=== PATIENT | female | born 1955 | race Caucasian/White ===

== ENCOUNTER 2016-08-21 08:06 | Emergency (ER) | payer OTHER ==
[~2016-08-21] VITALS: Ht 152.4 cm; Wt 65.0 kg
[~2016-08-21 08:06] MED LIST: BUPR150T3 PO; DARV PO; ESTR.3 PO; MELO15TA2 PO
[2016-08-21 08:08] VITALS: BP 156/86; PULSE 79; RESP 14; TEMP 98; O2SAT 98
[2016-08-21] MEDS ORDERED: LEVO.05 PO (09:47)
[2016-08-21] MEDS ORDERED: ESTR0.5T PO (09:47)
[2016-08-21] MEDS ORDERED: VITA10002 PO (09:47)
[2016-08-21] MEDS ORDERED: CHOL50008 PO (09:47)
== END 2016-08-21 08:50 | disposition left against medical advice (07) ==
LOC: NED 08:06
DX: Z53.21 Procedure and treatment not carried out due to patient leaving prior to being seen by health care provider (principal)
CPT/HCPCS: 99281

== ENCOUNTER 2016-08-21 09:20 | Inpatient (IN) | payer OTHER ==
[~2016-08-21] VITALS: Ht 146.1 cm; Wt 69.9 kg
[2016-08-21 09:22] VITALS: BP 141/82; PULSE 80; RESP 18; TEMP 98; O2SAT 96
--- NOTE | 2016-08-21 09:43 | PD ---
HPI Chief Complaint: Flank/Kidney Pain Time Seen by Provider: 09:27 Travel History International Travel<30 days: No Contact w/Intl Traveler<30days: No Traveled to known affect area: No History of Present Illness HPI 61-year-old female complains of left flank pain and left low quadrant abdominal pain. Patient states that the pain started 11 days ago. Patient states the pain is cramping pain localized to left leg and left low quadrant of the abdomen. Patient denies any pain radiation. Patient denies any nausea vomiting diarrhea. Patient denies any dysuria or frequency. Patient denies any vaginal discharge or bleeding. Patient denies any fever chills. Patient was seen by physician 6 days ago. Patient had CBC, CMP, UA and kidney ultrasound done that time which were normal. Patient was seen by personal physician 5 days ago and was given prescription for prednisone, methocarbamol and diclofenac. Patient has been taking the medication without relief of the pain. Patient status post cholecystectomy, appendectomy, hysterectomy. On a scale of 1-10 the pain is a 7. PFSH Past Medical History Diminished Hearing: Yes ?: Not Menopausal: Yes Past Surgical History Appendectomy: Yes Cholecystectomy: Yes Ear Surgery: Yes Hysterectomy: Yes Social History Alcohol Use: No Tobacco Use: No Substance Use: No Allergies-Medications (Allergen,Severity, Reaction): Coded Allergies: Codeine (Verified Allergy, Severe, HIVES,NAUSEA AND VOMITTING, 08/21/16) Demerol (Verified Allergy, Severe, HIVES,NAUSEA AND VOMITTING, 08/21/16) Tramadol (Verified Allergy, Intermediate, GI UPSET, 08/21/16) Reported Meds & Prescriptions Reported Meds & Active Scripts Active Reported Vitamin D3 (Cholecalciferol) 5,000 Unit Tab 5,000 Units PO DAILY Vitamin B-12 (Cyanocobalamin) 1,000 Mcg Tab 1,000 Mcg PO DAILY Estradiol 0.5 Mg Tab 0.5 Mg PO DAILY Synthroid (Levothyroxine Sodium) 50 Mcg Tab 50 Mcg PO DAILY Review of Systems General / Constitutional: No: Fever Eyes: No: Visual changes HENT: No: Headaches Cardiovascular: No: Chest Pain or Discomfort Respiratory: No: Shortness of Breath Gastrointestinal: Positive: Abdominal Pain Genitourinary: No: Dysuria Musculoskeletal: No: Pain Skin: No Rash Neurologic: No: Weakness Psychiatric: No: Depression Endocrine: No: Polydipsia Hematologic/Lymphatic: No: Easy Bruising Physical Exam Narrative GENERAL: Well-nourished, well-developed patient. SKIN: Warm and dry. HEAD: Normocephalic. EYES: No scleral icterus. No injection or drainage. NECK: Supple, trachea midline. No JVD or lymphadenopathy. CARDIOVASCULAR: Regular rate and rhythm without murmurs, gallops, or rubs. RESPIRATORY: Breath sounds equal bilaterally. No accessory muscle use. GASTROINTESTINAL: Abdomen soft, nondistended. Patient has mild tenderness on palpation epigastric, left low quadrant of the abdomen. No rebound tenderness. No mass. MUSCULOSKELETAL: No cyanosis, or edema. BACK: Nontender without obvious deformity. No CVA tenderness. Neurologic exam normal. Data Data Last Documented VS Vital Signs Date Time Temp Pulse Resp B/P Pulse Ox O2 Delivery O2 Flow Rate FiO2 08/21/16 09:59 16 98 Room Air 08/21/16 09:22 98.0 80 141/82 Orders Complete Blood Count With Diff (08/21/16 09:35) Comprehensive Metabolic Panel (08/21/16 09:35) Urinalysis - C+S If Indicated (08/21/16 09:35) Ct Abd/Pel W Iv Contrast(Rout) (08/21/16 09:35) Iv Access Insert/Monitor (08/21/16 09:35) Ecg Monitoring (08/21/16 09:35) Oximetry (08/21/16 09:35) Sodium Chloride 0.9% Flush (Ns Flush) (08/21/16 09:45) Iohexol 350 Inj (Omnipaque 350 Inj) (08/21/16 10:55) Labs Laboratory Tests Test 08/21/16 08/21/16 09:50 09:55 Urine Collection Type CLEAN CATCH Urine Color STRAW Urine Turbidity CLEAR Urine pH 5.5 Urine Specific [place] 1.007 Urine Protein NEG mg/dL Urine Glucose (UA) NEG mg/dL Urine Ketones NEG mg/dL Urine Occult Blood TRACE Urine Nitrite NEG Urine Bilirubin NEG Urine Leukocyte Esterase NEG Urine Squamous Epithelial 0-5 /hpf Cells Microscopic Urinalysis Comment CULT NOT INDICATED White Blood Count 6.5 TH/MM3 Red Blood Count 4.35 MIL/MM3 Hemoglobin 13.3 GM/DL Hematocrit 39.4 % Mean Corpuscular Volume 90.6 FL Mean Corpuscular Hemoglobin 30.5 PG Mean Corpuscular Hemoglobin 33.6 % Concent Red Cell Distribution Width 11.6 % Platelet Count 314 TH/MM3 Mean Platelet Volume 8.5 FL Neutrophils (%) (Auto) 63.2 % Lymphocytes (%) (Auto) 26.2 % Monocytes (%) (Auto) 6.7 % Eosinophils (%) (Auto) 2.3 % Basophils (%) (Auto) 1.6 % Neutrophils # (Auto) 4.2 TH/MM3 Lymphocytes # (Auto) 1.7 TH/MM3 Monocytes # (Auto) 0.4 TH/MM3 Eosinophils # (Auto) 0.1 TH/MM3 Basophils # (Auto) 0.1 TH/MM3 CBC Comment DIFF FINAL Differential Comment Sodium Level 142 MEQ/L Potassium Level 4.2 MEQ/L Chloride Level 104 MEQ/L Carbon Dioxide Level 30.3 MEQ/L Anion Gap 8 MEQ/L Blood Urea Nitrogen 16 MG/DL Creatinine 0.94 MG/DL Estimat Glomerular Filtration 61 ML/MIN Rate Random Glucose 94 MG/DL Calcium Level 8.8 MG/DL Total Bilirubin 0.4 MG/DL Aspartate Amino Transf 31 U/L (AST/SGOT) Alanine Aminotransferase 34 U/L (ALT/SGPT) Alkaline Phosphatase 62 U/L Total Protein 7.6 GM/DL Albumin 3.9 GM/DL [facility] Medical Decision Making Medical Screen Exam Complete: Yes Emergency Medical Condition: Yes Interpretation(s) 10:58 AM. CBC within normal limit. CMP within normal limit. UA is negative. 11:[address] scan abdomen pelvis shows colitis. Differential Diagnosis Differential diagnosis including musculoskeletal, colitis, UTI, pyelonephritis, nephrolithiasis, adhesion pain. Narrative Course 61-year-old female with persistent left flank pain and left low quadrant abdominal pain. Normal saline solution 1 25 cc an hour. Levaquin 750 mg IV. Flagyl 500 mg IV. Morphine 2 mg IV. Zofran 4 g IV. Diagnosis Primary Impression: Colitis Devyn Mendoza MD Aug 21, 2016 09:43
[2016-08-21] MEDS ORDERED: SODIUM CHLORIDE 0.9% FLUSH 5 ML FLUSH IVF PRN (09:45)
[2016-08-21] MEDS ORDERED: ESTR0.5T PO (09:47)
[2016-08-21] MEDS ORDERED: VITA10002 PO (09:47)
[2016-08-21] MEDS ORDERED: CHOL50008 PO (09:47)
[2016-08-21] MEDS ORDERED: LEVO.05 PO (09:47)
[2016-08-21 09:59] VITALS: RESP 16; O2SAT 98
[2016-08-21 10:16] LABS: AUTOMATED NEUTROPHIL # 4.2 TH/MM3 (1.8-7.7); BASOPHIL # 0.1 TH/MM3 (0-0.2); BASOPHIL % 1.6 % (0.0-2.0); EOSINOPHIL # 0.1 TH/MM3 (0-0.4); EOSINOPHIL % 2.3 % (0.0-4.0); HEMATOCRIT 39.4 % (35.0-46.0); HEMO FLAGS DIFF FINAL; LYMPH % 26.2 % (9.0-44.0); LYMPHOCYTE # 1.7 TH/MM3 (1.0-4.8); MEAN CELL VOLUME 90.6 FL (80.0-100.0); MEAN CORPUSCULAR HEMOGLOBIN 30.5 PG (27.0-34.0); MEAN CORPUSCULAR HGB CONC 33.6 % (32.0-36.0); MONO % 6.7 % (0.0-8.0); NEUT % 63.2 % (16.0-70.0); PLATELET COUNT 314 TH/MM3 (150-450); RED BLOOD COUNT 4.35 MIL/MM3 (4.00-5.30); RED CELL DISTRIBUTION WIDTH 11.6 % (11.6-17.2); WHITE BLOOD COUNT 6.5 TH/MM3 (4.0-11.0)
[2016-08-21 10:17] LABS: BLOOD, URINE TRACE (NEG); GLUCOSE,URINE NEG (NEG); KETONE, URINE NEG (NEG); NITRITE,URINE NEG (NEG); PH, URINE 5.5 (5.0-8.5)
[2016-08-21 10:20] LABS: METHOD OF COLLECTION CLEAN CATCH; URINE COLOR STRAW (YELLW/STRAW)
[2016-08-21 10:21] LABS: COMMENT (UR) CULT NOT INDICATED; CULTURE IF INDICATED CULT NOT INDICATED; SQUAMOUS EPITHELIAL CELL URINE 0-5 /hpf (0-5)
[2016-08-21 10:24] LABS: CHLORIDE 104 MEQ/L (98-107); SODIUM (NA) 142 MEQ/L (136-145)
[2016-08-21 10:26] LABS: POTASSIUM 4.2 MEQ/L (3.5-5.1)
[2016-08-21 10:28] LABS: ANION GAP 8 MEQ/L (5-15); BICARBONATE 30.3 MEQ/L (21.0-32.0); BLOOD UREA NITROGEN 16 MG/DL (7-18)
[2016-08-21 10:31] LABS: ALT (GPT) 34 U/L (10-53); AST (GOT) 31 U/L (15-37); GLOMERULAR FILTRATION RATE 61 ML/MIN (>89)
[2016-08-21 10:32] LABS: TOTAL BILIRUBIN ADULT 0.4 MG/DL (0.2-1.0)
[2016-08-21 10:34] LABS: ALKALINE PHOSPHATASE 62 U/L (45-117)
[2016-08-21] MEDS ORDERED: IOHEXOL 350 MG/ML 10 ML VIAL (for RAD DIAG) IV ONE (10:55)
--- NOTE | 2016-08-21 11:18 | RADHPO ---
EXAM DATE/TIME: 08/21/2016 10:44 [facility] COMPARISON: No previous studies available for comparison. INDICATIONS : Left lower quadrant pain for almost two weeks. IV CONTRAST: 95 cc Omnipaque 350 (iohexol) IV ORAL CONTRAST: No oral contrast ingested. RADIATION DOSE: 9.65 CTDIvol (mGy) MEDICAL HISTORY : None SURGICAL HISTORY : Appendectomy. Cholecystectomy.Hysterectomy. ENCOUNTER: Initial ACUITY: 2 weeks PAIN SCALE: 10/10 LOCATION: Left lower quadrant TECHNIQUE: Volumetric scanning of the abdomen and pelvis was performed. Using automated exposure control and ad justment of the mA and/or kV according to patient size, radiation dose was kept as low as reasonably achievable to obtain optimal diagnostic quality images. FINDINGS: LOWER LUNGS: The visualized lower lungs are clear. LIVER: Decreased attenuation without lesion. There is no dilation of the biliary tree. No calcified gallst ones. SPLEEN: Normal size without lesion. PANCREAS: Within normal limits. KIDNEYS: Normal in size and shape. There is no mass, stone or hydronephrosis. ADRENAL GLANDS: Within normal limits. VASCULAR: There is no aortic aneurysm. BOWEL/MESENTERY: Wall thickening versus nondistention of the descending and sigmoid colon. A few scattered diverticula within the sigmoid colon. No diverticulitis. Multiple small mesenteric lymph nodes.. There is no fr ee intraperitoneal air or fluid. ABDOMINAL WALL: Within normal limits. RETROPERITONEUM: There is no lymphadenopathy. BLADDER: No wall thickening or mass. REPRODUCTIVE: Within normal limits. INGUINAL: There is no lymphadenopathy or hernia. MUSCULOSKELETAL: Within normal limits for patient age. CONCLUSION: 1. Wall thickening versus nondistention of the descending and sigmoid colon which can be seen with co litis. No inflammatory changes, perforation or abscess. 2. Mild hepatic steatosis. Kartik Barone MD on August 21, 2016 at 11:13 Board Certified Radiologist. This report was verified electronically.
[2016-08-21 11:23] VITALS: BP 121/73; PULSE 68; RESP 18; O2SAT 97
[2016-08-21] MEDS ORDERED: MORPHINE SULFATE 4 MG/ML INJ IV PUSH ONE ×2 (11:30→14:45)
[2016-08-21] MEDS ORDERED: metroNIDAZOLE 500 MG INJ 100 ML IV ONE (11:30)
[2016-08-21] MEDS ORDERED: PANTOPRAZOLE SODIUM 40 MG VIAL IV PUSH ONE (11:30)
[2016-08-21] MEDS ORDERED: LEVOFLOXACIN 750 MG PREMIX INJ 150 ML IV ONE (11:30)
[2016-08-21] MEDS ORDERED: ONDANSETRON HCL 4 MG/2 ML VIAL IV PUSH ONE (11:30)
[2016-08-21] MEDS: SODIUM CHLOR 0.9% 1000 ML INJ 1,000 ML IV SCH ×2 (11:46→21:25)
[2016-08-21] MEDS ORDERED: SODIUM CHLORIDE 0.9% FLUSH 5 ML FLUSH FLUSH PRN (13:15)
[2016-08-21] MEDS ORDERED: ACETAMINOPHEN 325 MG TAB PO PRN (13:15)
[2016-08-21] MEDS ORDERED: ONDANSETRON HCL 4 MG/2 ML VIAL IVP PRN (13:15)
[2016-08-21] MEDS ORDERED: NALOXONE HCL 0.4 MG/ML AMP IV PRN (13:15)
[2016-08-21 13:30] VITALS: BP 116/76; PULSE 59; RESP 20; TEMP 96.7; O2SAT 98
[2016-08-21 16:00] VITALS: BP 102/69; PULSE 61; RESP 20; TEMP 96.9; O2SAT 99
[2016-08-21] MEDS ORDERED: MORPHINE SULFATE 4 MG/ML INJ IV PUSH PRN ×2 (19:00)
[2016-08-21] MEDS ORDERED: HYDROmorphone HCL PF 1 MG/ML VIAL IV PUSH PRN (19:15)
--- NOTE | 2016-08-21 19:33 | MH ---
cc: DOUG DE LA CRUZ DATE OF ADMISSION 08/21/2016 ADMISSION DIAGNOSIS Left lower quadrant, left flank pain. HISTORY OF PRESENT ILLNESS Ms. Tinajero is a 61-year-old female who states approximately a week ago she woke up with left-sided pain. She said it radiated, it moved forward into her groin and a little bit into her back. She states that morning she had made breakfast and jumped on her grandson's bed to play with him and to get him up. She does not know if the pain started before or after that. She had bryson for dinner the night before. She did not had any fevers, chills, nausea or vomiting, just a constant pain that was unrelieved. She tried [id number] medications with ibuprofen. Finally she went to [facility] where she was seen there and evaluated. Urinalysis that was done was negative. They did do a renal ultrasound. This was also read as negative. This was on August 15. On August 16 she was seen by her primary care physician who again reevaluated her and placed her on Robaxin and prednisone 20 mg once daily. The Robaxin 500 three times a day. She said that when she went to the pharmacy the Prednisone was not there so she actually just took the Robaxin. She also was doing stretching exercises. According to her she was doing well prior to this pain. She describes the pain as a constant pain. She has not been able to sleep at all at night. She feels as if though it is moving through from her anterior lower abdomen straight to her back. It is made worse with bending forward or sitting. She feels better if she is lying flat in bed. She has had no nausea or vomiting. No diarrhea. No change in her bowel movement. She is urinating well. She has noticed no rashes. Over the weekend what she did is, since she was not feeling any better she was eating less food. She did notice that the pain was a little bit improved when she ate, when she had light meals over the weekend. However, this morning when she woke up the pain was intense which prompted her to come to the emergency room. Nothing seems to be improving the pain. She describes the pain as being present 07/01. She has had a small amount of relief with morphine she has received. PAST MEDICAL HISTORY 1. She does have a past medical history of hypothyroidism. 2. Lumbar disk disease. She has had eight injections by pain management. 3. She has had a prior history of kidney stones as well. PAST SURGICAL HISTORY Her surgical history includes: 1. Bilateral surgery. 2. Appendectomy. 3. Cholecystectomy. 4. She has had a supracervical hysterectomy. 5. Tonsillectomy. 6. Her last colonoscopy was in 2007 and this was normal. ALLERGIES CODEINE, DEMEROL AND TRAMADOL, HOWEVER, SHE HAS BEEN ABLE TO TAKE THE MORPHINE. SHE STATES THAT MOST OF HER ALLERGIES ARE SECONDARY TO GI UPSET OR SHE JUST DOES NOT LIKE THE WAY THE MEDICINES MAKE HER FEEL. MEDICATIONS Include: 1. Biotin. 2. Estradiol 0.5. 3. Levothyroxine 50 mcg daily. 4. Red yeast rice. 5. B12 1000 micrograms. 6. Vitamin D3. SOCIAL HISTORY She is . 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 Habits, she drinks an occasional wine. She used to smoke a pack a week approximately, she no longer smokes. FAMILY HISTORY Noncontributory. REVIEW OF SYSTEMS She denies any fevers, chills. No weight gain or loss. No chest pain or shortness of breath or palpitations. No heartburn or indigestion. She does state she is urinating well. She denies any numbness or tingling or swelling. No pain in her legs. PHYSICAL EXAMINATION VITAL SIGNS: On physical exam temperature is 96.9, pulse is 61, respirations 20, blood pressure is 102/69, pulse ox on room air is 99%. GENERAL: This is a very pleasant female lying in the hospital bed. She speaks very comfortably and moves very well in the bed. HEENT: She is normocephalic and traumatic. EOM is intact. She is wearing her glasses. NECK: Her neck is supple. LUNGS: Her lungs were clear to auscultation bilaterally. No rhonchi, rales or wheezes. CARDIOVASCULAR: Her heart is regular. It is not tachycardiac. I hear no murmurs. ABDOMEN: The abdomen has bowel sounds. They are a little bit diminished. She is tender in the left lower quadrant to palpation. She does have some tenderness in the left lower paravertebral area above the sciatic notch. MUSCULOSKELETAL: She has negative straight leg raising. I am not able to elicit the pain with movement. SKIN: She has no rashes evident on her skin. LABORATORY DATA Lab work that was done showed a white count of 6.5, hemoglobin of 13.3, hematocrit of 39.4, a platelet count of 314. Chemistry shows sodium of 142, potassium of 4.2, BUN 16, creatinine 0.94. Her urine was negative except for trace occult blood. IMAGING CT scan that was done showed wall thickening versus non distension of the descending and sigmoid colon which can be seen with a colitis. No inflammatory changes, perforation or abscess. Mild hepatic steatosis. ASSESSMENT/PLAN A 51-year-old female presenting with over a week history of left lower quadrant pain with negative workup so far. At this time she has been admitted and started on antibiotics and IV hydration. We will keep her on clear liquids. My initial impression when I spoke to the patient was that this was musculoskeletal but on exam she does have left lower quadrant tenderness to palpation. So we will continue with the current course of treatment. I have asked GI to see her. I placed a consult. We will continue the rest of the medications for her hypothyroidism. Further recommendations as the case develops. MD DENNIS Clark/LESLY /6:52 PM /7:07 PM
[2016-08-21 20:00] VITALS: BP 118/61; PULSE 72; RESP 18; TEMP 97.1; O2SAT 99
[2016-08-21] MEDS: metroNIDAZOLE 500 MG INJ 100 ML IV SCH (20:06)
[2016-08-21] MEDS ORDERED: TEMAZEPAM 15 MG CAP PO PRN (20:15)
[2016-08-21] MEDS ORDERED: PILL SPLITTER OTHER PRN (20:15)
--- NOTE | 2016-08-21 20:56 | RADHPO ---
EXAM DATE/TIME: 08/21/2016 10:44 [facility] COMPARISON: No previous studies available for comparison. INDICATIONS : Left lower quadrant pain radiating into back. IV CONTRAST: 95 cc Omnipaque 350 (iohexol) IV ; Cumulative dose for multiple exams. RADIATION DOSE: ; Reconstructed from previous dataset MEDICAL HISTORY : None SURGICAL HISTORY : Cholecystectomy. Hysterectomy.Appendectomy. ENCOUNTER: Initial ACUITY: 1 day PAIN SCALE: 10/10 LOCATION: Left lower quadrant TECHNIQUE: Volumetric scanning of the lumbar spine was performed. Multiplanar reconstructions in the sagittal, coronal and oblique axial planes were performed. Using automated exposure control and adjustment of the mA and/or kV according to patient size, radiation dose was kept as low as reasonably achievable t o obtain optimal diagnostic quality images. FINDINGS: Several millimeters of degenerative anterolisthesis seen at L5/S1. No pars defect or other fracture d emonstrated. Vertebral bodies have normal height. L1-L2 L2-L3: L3-L4: The disc has mild loss of height. There is bulging of the disc annulus, especially right foraminal/la teral. There is mild right foraminal encroachment. CONCLUSION: 1. Multilevel lumbar degenerative changes as detailed above. 2. Grade 1 degenerative tearing anterolisthesis at L5/S1. No fracture or acute-appearing malalignment . 3. There is left lateral recess and left foraminal encroachment at L5/S1. Mild foraminal stenosis on the left at L1/L2 and on the right at L3/L4 also noted. Antonio Loza MD on August 21, 2016 at 20:46 Board Certified Radiologist. This report was verified electronically.
[2016-08-21] MEDS: SODIUM CHLORIDE 0.9% FLUSH 5 ML FLUSH FLUSH SCH (21:25)
--- NOTE | 2016-08-21 22:01 | MB ---
cc: FLORINA REYNA M.D., CARMEN A. M.D. DATE OF CONSULTATION: 08/21/2016 REASON FOR CONSULTATION: Abdominal pain in the left lower quadrant, possible colitis. Date of : 1955 REFERRING PHYSICIAN: Dr. Landrum. HISTORY OF PRESENT ILLNESS: Ms. Tinajero is a very pleasant 61 year-old lady with no major medical issues came to the emergency room with intractable pain in the left lower quadrant and her back. This is going on for approximately 11 days. She denies any fever or chills, weight loss, weight gain, diarrhea, constipation, melena, hematemesis, hematochezia, nausea, vomiting. She had one episode of vomiting after she took morphine which she stated it happened in the past with pain medications. No nausea and vomiting before this episode. Her last colonoscopy was more than ten years ago. According to her it was normal. She had investigations as an outpatient that included blood work, ultrasound, urinalysis, which were all negative. She was given prescription for prednisone, diclofenac, methocarbamol. She states that none of these medications helped her with her symptoms. Due to the fact the pain got worse, she came to the emergency room. The patient stated that the pain is worse when she bends over but then when she lies back in bed, not triggered by food or bowel movements. CT of the abdomen and pelvis was performed and is consistent with wall thickening versus non-distension of the descending and sigmoid colon, possible colitis, mild hepatic steatosis, otherwise negative. PAST MEDICAL HISTORY 1. She has a history of Tayo's thyroiditis. 2. Osteopenia. 3. Back problems. 4. In the nursing notes, it is noted that she has a history of colitis, even though she denies it to me. SOCIAL HISTORY: She denies any drug use. Smokes one pack per week. FAMILY HISTORY: Denies any family history of colon cancer or any other GI pathology. PAST SURGICAL HISTORY: 1. Appendectomy. 2. Cholecystectomy. 3. Hysterectomy. ALLERGIES Tramadol. MEDICATIONS AT HOME: 1. Vitamin D3. 2. B12. 3. Estradiol. 4. Synthroid. In the hospital: 1. Levaquin. 2. Metronidazole 3. Morphine. 4. Zofran p.r.n. 5. Tylenol p.r.n. 6. IV fluids. REVIEW OF SYSTEMS: She denies any fever or chills, weight loss or weight gain. ENT: No alteration in the baseline hearing or visual acuity. Pulmonary: Denies any chest pain, shortness of breath. Gastrointestinal: As above. Genitourinary: Denies dysuria, hematuria. Hematologic: No history of anemia or bleeding disorder. Skin: No alteration in baseline skin lesion. Neurologic: No history of TIA or CVA kind of symptoms. CLINICAL EXAM She is sitting comfortable in bed in no acute distress. Her temperature is 96.9, pulse 61, respiratory rate 20. Blood pressure 102/69, pulse of 99. HEENT: PERRLA. Neck: No JVD. No lymphadenopathy. Chest: Clear to auscultation and palpation. Cardiovascular: S1-S2, no murmur. Abdomen: Soft, tender on deep palpation in the left lower quadrant. TELEPHONE INTERVIEWER: Awake, alert, oriented x3. No focal signs identified. CT as described. CMP normal. CBC is normal. Urinalysis is essentially normal except trace of occult blood. IMPRESSION: Ms. Tinajero is a 61-year-old lady with pain in the left lower quadrant, unclear etiology at this time, possible colitis versus early diverticulitis versus appendagitis, pain in the left lower quadrant, history of osteoarthritis and chronic back issues, possible musculoskeletal pain. RECOMMENDATIONS Clear liquid diet, flexible sigmoidoscopy in the morning. If negative, consider CT of the lumbosacral spine. Toradol, Zofran p.r.n. I would like to thank Dr. Landrum for referring her to our office for consultation. Will continue to follow the patient along with you. Florina Reyna MD BSB/KELLEY /7:21 PM /9:45 PM
[2016-08-22] VITALS: BP 108/63; PULSE 70; RESP 18; TEMP 96.7; O2SAT 98
[2016-08-22] MEDS: metroNIDAZOLE 500 MG INJ 100 ML IV SCH ×3 (04:34→19:52)
[2016-08-22] MEDS: LEVOTHYROXINE SODIUM 50 MCG TAB PO SCH (04:35)
[2016-08-22] MEDS: SODIUM CHLOR 0.9% 1000 ML INJ 1,000 ML IV SCH ×3 (04:35→19:54)
[2016-08-22] MEDS ORDERED: SOD PHOSPHATE/SOD BIPHOSPHATE (ADULT) ENEMA 133ML PR ONE (06:00)
[2016-08-22 06:34] LABS: AUTOMATED NEUTROPHIL # 4.6 TH/MM3 (1.8-7.7); BASOPHIL % 0.2 % (0.0-2.0); EOSINOPHIL % 0.5 % (0.0-4.0); HEMATOCRIT 37.2 % (35.0-46.0); HEMO FLAGS DIFF FINAL; LYMPHOCYTE # 1.5 TH/MM3 (1.0-4.8); MEAN CELL VOLUME 91.4 FL (80.0-100.0); MEAN CORPUSCULAR HEMOGLOBIN 30.4 PG (27.0-34.0); MEAN CORPUSCULAR HGB CONC 33.2 % (32.0-36.0); MONO % 8.5 % (0.0-8.0); NEUT % 67.8 % (16.0-70.0); PLATELET COUNT 285 TH/MM3 (150-450); RED BLOOD COUNT 4.07 MIL/MM3 (4.00-5.30); RED CELL DISTRIBUTION WIDTH 11.9 % (11.6-17.2); WHITE BLOOD COUNT 6.7 TH/MM3 (4.0-11.0)
[2016-08-22 06:41] LABS: CHLORIDE 107 MEQ/L (98-107); POTASSIUM 3.7 MEQ/L (3.5-5.1); SODIUM (NA) 142 MEQ/L (136-145)
[2016-08-22 06:42] VITALS: BP 128/83; PULSE 70; RESP 16; TEMP 98.5; O2SAT 99
[2016-08-22 06:54] LABS: ALKALINE PHOSPHATASE 54 U/L (45-117); ALT (GPT) 31 U/L (10-53); ANION GAP 9 MEQ/L (5-15); AST (GOT) 21 U/L (15-37); BICARBONATE 26.5 MEQ/L (21.0-32.0); BLOOD UREA NITROGEN 11 MG/DL (7-18); GLOMERULAR FILTRATION RATE 68 ML/MIN (>89); TOTAL BILIRUBIN ADULT 0.4 MG/DL (0.2-1.0)
[2016-08-22 08:00] VITALS: BP 109/70; PULSE 69; RESP 20; TEMP 97.8; O2SAT 99
[2016-08-22] MEDS: SODIUM CHLORIDE 0.9% FLUSH 5 ML FLUSH FLUSH SCH ×2 (09:00→22:17)
[2016-08-22] MEDS: CYANOCOBALAMIN 1,000 MCG TAB PO SCH (09:54)
[2016-08-22] MEDS: CHOLECALCIFEROL (VIT D3) 5000 UNIT CAP PO SCH (09:54)
[2016-08-22] MEDS: ESTRADIOL 1 MG TAB PO SCH (09:55)
[2016-08-22] MEDS ORDERED: LEVOFLOXACIN 500 MG PREMIX INJ 100 ML IV SCH (11:00)
[2016-08-22] MEDS ORDERED: KETOROLAC TROMETHAMINE 60 MG/2 ML (IM) VIAL IM ONE (11:20)
--- NOTE | 2016-08-22 11:24 | HHI.PR ---
Subjective Remarks Still in pain. nausea and emesis with morphine. Had procedure this am, still in pain but less. Objective Vitals Vital Signs Date Time Temp Pulse Resp B/P Pulse Ox O2 Delivery O2 Flow Rate FiO2 08/22/16 08:00 97.8 69 20 109/70 99 08/22/16 07:22 98.2 70 15 104/63 100 08/22/16 06:42 98.5 70 16 128/83 99 08/22/16 00:00 96.7 70 18 108/63 98 08/21/16 20:00 97.1 72 18 118/61 99 08/21/16 16:00 96.9 61 20 102/69 99 08/21/16 13:30 96.7 59 20 116/76 98 08/21/16 13:30 96.7 59 20 116/76 98 08/21/16 12:18 18 08/21/16 11:23 68 18 121/73 97 Room Air 08/21/16 08/21/16 08/22/16 15:00 23:00 07:00 Intake Total 1600 ml Output Total 300 ml Balance -300 ml 1600 ml Intake IV Total 1600 ml Output Emesis 300 ml # Voids 1 Result Diagram: 08/22/16 0550 08/22/16 0550 Imaging Last Impressions Abdomen/Pelvis CT 08/21/16 0935 Signed Impressions: Service Date/Time: Sunday, August 21, 2016 10:44 - CONCLUSION: 1. Wall thickening versus nondistention of the descending and sigmoid colon which can be seen with colitis. No inflammatory changes, perforation or abscess. 2. Mild hepatic steatosis. Kartik Barone MD Lumbar Spine CT 08/21/16 0000 Signed Impressions: Service Date/Time: Sunday, August 21, 2016 10:44 - CONCLUSION: 1. Multilevel lumbar degenerative changes as detailed above. 2. Grade 1 degenerative tearing anterolisthesis at L5/S1. No fracture or acute-appearing malalignment. 3. There is left lateral recess and left foraminal encroachment at L5/S1. Mild foraminal stenosis on the left at L1/L2 and on the right at L3/L4 also noted. Antonio Loza MD Objective Remarks Lying in bed eyes glassy lungs cta heart rrr Abdomen +BS llq tenderness no rebound A/P Problem List: (1) Colitis Status: Acute Plan: Colitis on ct scan , flex sig this am , report pending, on levofloxin and metronidazole. N/V with narcotics, she doesnt like steroids, will try toradol one time to see if she tolerates it and provides relief (2) Hypothyroidism Status: Chronic Plan: cont levothyroxine (3) Chronic back pain Status: Chronic Plan: ct showed multilevel disc disease and left foraminal recess and left foraminal encroachment Problem Qualifiers (1) Chronic back pain: Юлия Landrum MD Aug 22, 2016 11:24
[2016-08-22 12:00] VITALS: BP 126/76; PULSE 83; RESP 20; TEMP 97; O2SAT 99
[2016-08-22] MEDS ORDERED: PANTOPRAZOLE SODIUM 40 MG VIAL IV PUSH SCH (14:00)
[2016-08-22 16:00] VITALS: BP 135/69; PULSE 67; RESP 20; TEMP 97.7; O2SAT 98
[2016-08-22 16:37] LABS: AUTOMATED NEUTROPHIL # 4.1 TH/MM3 (1.8-7.7); BASOPHIL % 0.4 % (0.0-2.0); EOSINOPHIL # 0.1 TH/MM3 (0-0.4); HEMATOCRIT 36.5 % (35.0-46.0); HEMO FLAGS DIFF FINAL; LYMPHOCYTE # 2.1 TH/MM3 (1.0-4.8); MEAN CELL VOLUME 92.1 FL (80.0-100.0); MEAN CORPUSCULAR HEMOGLOBIN 31.4 PG (27.0-34.0); MEAN CORPUSCULAR HGB CONC 34.1 % (32.0-36.0); MONO % 10.7 % (0.0-8.0); NEUT % 56.9 % (16.0-70.0); PLATELET COUNT 278 TH/MM3 (150-450); RED BLOOD COUNT 3.97 MIL/MM3 (4.00-5.30); RED CELL DISTRIBUTION WIDTH 12.1 % (11.6-17.2)
[2016-08-22 16:45] LABS: POTASSIUM 3.8 MEQ/L (3.5-5.1)
[2016-08-22 16:48] LABS: BICARBONATE 28.1 MEQ/L (21.0-32.0)
[2016-08-22] MEDS ORDERED: PROPOFOL 200 MG/20 ML AMP IV ONE (17:23)
[2016-08-22] MEDS: KETOROLAC TROMETHAMINE 10 MG TAB PO PRN (19:52)
[2016-08-22 20:00] VITALS: BP 121/70; PULSE 67; RESP 20; TEMP 97.3; O2SAT 96
[2016-08-23] VITALS: BP 107/62; PULSE 74; RESP 20; TEMP 98.6; O2SAT 98
[2016-08-23] MEDS: SODIUM CHLOR 0.9% 1000 ML INJ 1,000 ML IV SCH ×2 (04:12→10:27)
[2016-08-23] MEDS: metroNIDAZOLE 500 MG INJ 100 ML IV SCH ×2 (04:12→11:31)
[2016-08-23] MEDS: KETOROLAC TROMETHAMINE 10 MG TAB PO PRN ×2 (04:14→10:28)
[2016-08-23] MEDS: LEVOTHYROXINE SODIUM 50 MCG TAB PO SCH (04:14)
[2016-08-23 06:40] LABS: CHLORIDE 113 MEQ/L (98-107); POTASSIUM 4.4 MEQ/L (3.5-5.1); SODIUM (NA) 146 MEQ/L (136-145)
[2016-08-23 06:46] LABS: ANION GAP 6 MEQ/L (5-15); BICARBONATE 26.8 MEQ/L (21.0-32.0)
[2016-08-23 06:47] LABS: BLOOD UREA NITROGEN 13 MG/DL (7-18)
[2016-08-23 06:49] LABS: ALT (GPT) 40 U/L (10-53); AST (GOT) 34 U/L (15-37); GLOMERULAR FILTRATION RATE 63 ML/MIN (>89)
[2016-08-23 06:51] LABS: TOTAL BILIRUBIN ADULT 0.4 MG/DL (0.2-1.0)
[2016-08-23 06:52] LABS: ALKALINE PHOSPHATASE 49 U/L (45-117)
[2016-08-23 08:00] VITALS: BP 114/75; PULSE 62; RESP 16; TEMP 97.4; O2SAT 95
[2016-08-23] MEDS: SODIUM CHLORIDE 0.9% FLUSH 5 ML FLUSH FLUSH SCH (09:00)
[2016-08-23] MEDS: CHOLECALCIFEROL (VIT D3) 5000 UNIT CAP PO SCH (09:07)
[2016-08-23] MEDS: ESTRADIOL 1 MG TAB PO SCH (09:07)
[2016-08-23] MEDS: CYANOCOBALAMIN 1,000 MCG TAB PO SCH (09:08)
[2016-08-23] MEDS ORDERED: LEVOFLOXACIN 250 MG PREMIX INJ 50 ML IV SCH (11:00)
[2016-08-23 12:00] VITALS: BP 117/67; PULSE 65; RESP 16; TEMP 97.2; O2SAT 98
--- NOTE | 2016-08-23 12:32 | HHI.PR ---
Subjective Remarks Feeling much better today, much less pain. Eager to go home Objective Vitals Vital Signs Date Time Temp Pulse Resp B/P Pulse Ox O2 Delivery O2 Flow Rate FiO2 08/23/16 12:00 97.2 65 16 117/67 98 08/23/16 08:00 97.4 62 16 114/75 95 08/23/16 00:00 98.6 74 20 107/62 98 08/22/16 22:15 18 08/22/16 20:00 97.3 67 20 121/70 96 08/22/16 16:00 97.7 67 20 135/69 98 08/22/16 08/22/16 08/23/16 15:00 23:00 07:00 Intake Total 850 ml 240 ml 620 ml Balance 850 ml 240 ml 620 ml Intake Oral 750 ml 240 ml 120 ml IV Total 500 ml Other 100 ml # Voids 4 3 2 # Bowel Movements 0 0 0 Result Diagram: 08/22/16 1614 08/23/16 0535 Imaging Last Impressions Abdomen/Pelvis CT 08/21/16 0935 Signed Impressions: Service Date/Time: Sunday, August 21, 2016 10:44 - CONCLUSION: 1. Wall thickening versus nondistention of the descending and sigmoid colon which can be seen with colitis. No inflammatory changes, perforation or abscess. 2. Mild hepatic steatosis. Kartik Barone MD Lumbar Spine CT 08/21/16 0000 Signed Impressions: Service Date/Time: Sunday, August 21, 2016 10:44 - CONCLUSION: 1. Multilevel lumbar degenerative changes as detailed above. 2. Grade 1 degenerative tearing anterolisthesis at L5/S1. No fracture or acute-appearing malalignment. 3. There is left lateral recess and left foraminal encroachment at L5/S1. Mild foraminal stenosis on the left at L1/L2 and on the right at L3/L4 also noted. Antonio Loza MD Objective Remarks Lying in bed looks rested lungs cta heart rrr Abdomen +BS no tenderness in llq TEDS in place A/P Problem List: (1) Colitis Status: Acute Plan: Colitis on ct scan , flex sig this am , some erythema biopsies done, spoke to Dr Jennings and will discharge on 3 more days of antibiotics (2) Hypothyroidism Status: Chronic Plan: cont levothyroxine (3) Chronic back pain Status: Chronic Plan: ct showed multilevel disc disease and left foraminal recess and left foraminal encroachment, her pain responded more to the toradol then anything else we discussed following up with pain management at discharge Problem Qualifiers (1) Chronic back pain: Юлия Landrum MD Aug 23, 2016 12:32
[2016-08-23] MEDS ORDERED: KETO10 PO (12:43)
[2016-08-23] MEDS ORDERED: LEVO500T3 PO (12:43)
[2016-08-23] MEDS ORDERED: METR250T15 PO (12:43)
--- NOTE | 2016-08-23 13:13 | HHI.GIFU ---
GI Follow-up Note Consult Follow-up Subjective: Patient laying in bed comfortably. feeling better.No nausea, vomiting,tolerated diet.She had flexisigmoidoscopy-noted. Objective: PHYSICAL EXAMINATION: Vitals signs stable No fever Vital Signs Date Time Temp Pulse Resp B/P Pulse Ox O2 Delivery O2 Flow Rate FiO2 08/23/16 12:00 97.2 65 16 117/67 98 08/23/16 08:00 97.4 62 16 114/75 95 HEENT: Pupils round and reactive to light; normocephalic; atraumatic; no jaundice. Throat is clear. NECK: Neck is supple, no JVD, no lymphadenopathy. CHEST: Chest is clear to auscultation and percussion. CARDIAC: Regular rate and rhythm with no murmur gallop or rubs. ABDOMEN: Soft, nondistended, nontender; no hepatosplenomegaly; bowel sounds are present in all four quadrants. EXTREMITIES: No clubbing, cyanosis, or edema. SKIN: Normal; no rash; no jaundice. UM SPECIALIST: No focal deficits; alert and oriented times three. Available Data (labs, X- Rays, Procedues) : Laboratory Tests Test 08/22/16 08/22/16 08/23/16 05:50 16:14 05:35 White Blood Count 6.7 TH/MM3 7.0 TH/MM3 Red Blood Count 4.07 MIL/MM3 3.97 MIL/MM3 Hemoglobin 12.4 GM/DL 12.5 GM/DL Hematocrit 37.2 % 36.5 % Mean Corpuscular Volume 91.4 FL 92.1 FL Mean Corpuscular Hemoglobin 30.4 PG 31.4 PG Mean Corpuscular Hemoglobin 33.2 % 34.1 % Concent Red Cell Distribution Width 11.9 % 12.1 % Platelet Count 285 TH/MM3 278 TH/MM3 Mean Platelet Volume 8.6 FL 8.2 FL Neutrophils (%) (Auto) 67.8 % 56.9 % Lymphocytes (%) (Auto) 23.0 % 30.0 % Monocytes (%) (Auto) 8.5 % 10.7 % Eosinophils (%) (Auto) 0.5 % 2.0 % Basophils (%) (Auto) 0.2 % 0.4 % Neutrophils # (Auto) 4.6 TH/MM3 4.1 TH/MM3 Lymphocytes # (Auto) 1.5 TH/MM3 2.1 TH/MM3 Monocytes # (Auto) 0.6 TH/MM3 0.7 TH/MM3 Eosinophils # (Auto) 0.0 TH/MM3 0.1 TH/MM3 Basophils # (Auto) 0.0 TH/MM3 0.0 TH/MM3 CBC Comment DIFF FINAL DIFF FINAL Differential Comment Sodium Level 142 MEQ/L 144 MEQ/L 146 MEQ/L Potassium Level 3.7 MEQ/L 3.8 MEQ/L 4.4 MEQ/L Chloride Level 107 MEQ/L 107 MEQ/L 113 MEQ/L Carbon Dioxide Level 26.5 MEQ/L 28.1 MEQ/L 26.8 MEQ/L Anion Gap 9 MEQ/L 9 MEQ/L 6 MEQ/L Blood Urea Nitrogen 11 MG/DL 11 MG/DL 13 MG/DL Creatinine 0.85 MG/DL 0.84 MG/DL 0.91 MG/DL Estimat Glomerular Filtration 68 ML/MIN 69 ML/MIN 63 ML/MIN Rate Random Glucose 89 MG/DL 81 MG/DL 93 MG/DL Calcium Level 8.0 MG/DL 8.3 MG/DL 7.7 MG/DL Total Bilirubin 0.4 MG/DL 0.4 MG/DL Aspartate Amino Transf 21 U/L 34 U/L (AST/SGOT) Alanine Aminotransferase 31 U/L 40 U/L (ALT/SGPT) Alkaline Phosphatase 54 U/L 49 U/L Total Protein 6.3 GM/DL 5.6 GM/DL Albumin 3.3 GM/DL 2.9 GM/DL ASSESSMENT/PLAN: pain in llq, most likely musculoskeletal questionable mild colitis on flexisigmoidoscopy, pathology pending Recommendations: ok to dc home from gi point fu pain management op fu office colonoscopy in 3-6 month continue antibiotics for 3 days It was a pleasure seeing Nuno Tinajero. Thank you for this consult. Entered by: Florina Atiknson MD Aug 23, 2016 13:13
--- NOTE | 2016-09-05 13:56 | PD.PROCEDR ---
GI Procedure REFERRING PHYSICIAN Dr Da Silva PROCEDURE PERFORMED flex sig with biopsy INDICATION FOR PROCEDURE colitis on CT PROCEDURE: The procedure, risks and benefits were discussed with Ms. Tinajero and informed consent was obtained. Anesthesia sedated her with Diprivan. She was placed in the left lateral decubitus position. Flexible Sigmoidoscopy: The Pentax videoscope was introduced through the rectum and advanced to the sigmoid. Retroflexion was performed in the rectum. Colonic prep was good FINDINGS: scope to dista TC, patchy erythemic mucosa with no edema or friability, no ulcers noted, biopsies were taken from TC and sigmoid, flex sig otherwise unremarkable ESTIMATED BLOOD LOSS: none SPECIMENS REMOVED: colon biopsies COMPLICATIONS: none IMPRESSION: colitis unclear etiology PLAN: await biopsies continue antibiotics F/U in clinic post discharge Marty Gonzalez MD Sep 05, 2016 13:56
== END 2016-08-23 13:55 | disposition home or self-care (01) | DRG 392 ==
LOC: PHED 09:20 → PHEDA 11:42 → PH3B 12:49
PROVIDERS: ADMIT Family Medicine; ATTEND Family Medicine
PROC: 0DBL8ZX Excision of Transverse Colon, Via Natural or Artificial Opening Endoscopic, Diagnostic (ICD-10-PCS; 2016-08-22)
PROC: 0DBN8ZX Excision of Sigmoid Colon, Via Natural or Artificial Opening Endoscopic, Diagnostic (ICD-10-PCS; principal; 2016-08-22 07:05)
DX: K52.9 Noninfective gastroenteritis and colitis, unspecified (principal); E03.9 Hypothyroidism, unspecified; R10.32 Left lower quadrant pain; Z87.442 Personal history of urinary calculi; Z87.891 Personal history of nicotine dependence; H91.90 Unspecified hearing loss, unspecified ear; M51.86 Other intervertebral disc disorders, lumbar region; M85.80 Other specified disorders of bone density and structure, unspecified site
CPT/HCPCS: 72132; 74177; 80048; 80053; 81001; 85025; 88305; C9113; J1885; J1956; J2270; J2405; J7030; Q9967